=== PATIENT | male | born 1960 | race Caucasian/White ===

== ENCOUNTER 2017-07-26 19:41 | Emergency (ER) | payer SELFPAY ==
[2017-07-26 19:51] VITALS: TEMP 99.1
[2017-07-26] MEDS ORDERED: SODIUM CHLORIDE 0.9% FLUSH 10 ML SOL IV PRN (20:04)
[2017-07-26] MEDS ORDERED: ASPIRIN 81 MG CHEWABLE CTB PO STA (20:04)
[2017-07-26] MEDS ORDERED: NITROGLYCERIN 0.4 MG TAB SL PRN (20:04)
[2017-07-26 20:20] LABS: BASOPHILS % (AUTO) 1 % (0-3); EOSINOPHILS % (AUTO) 4 % (0-9); HEMATOCRIT 36 % (39-53); MEAN CORPUSCULAR HGB CONC 35.5 gm/dl (32.0-36.0); MEAN CORPUSCULAR VOLUME 92 fL (80-100); NEUTROPHILS % (AUTO) 57.9 % (37-80)
[2017-07-26 20:38] LABS: CALCIUM 8.9 mg/dl (8.5-10.1); POTASSIUM 3.8 mMol/L (3.5-5.1)
[2017-07-26] MEDS ORDERED: ASPIRIN 81 MG CHEWABLE CTB ONE (20:58)
[2017-07-26] MEDS ORDERED: MORPHINE SULFATE 10 MG/ML SOL IV ONE (21:37)
[2017-07-26] MEDS ORDERED: MORPHINE SULFATE 10 MG/ML SOL ONE (21:38)
[2017-07-26 21:45] VITALS: O2SAT 99
[2017-07-26 23:17] VITALS: BP 140/72; PULSE 80; RESP 19
== END 2017-07-26 23:05 | DRG 538 ==
LOC: ED 19:41
DX: S76.212A Strain of adductor muscle, fascia and tendon of left thigh, initial encounter (principal); Z86.79 Personal history of other diseases of the circulatory system
CPT/HCPCS: 36415; 71010; 74177; 80048; 82550; 83880; 84484; 85025; 85610; 85730; 93005; 99285; J2270; Q9967

== ENCOUNTER 2018-07-06 14:14 | Emergency (ER) | payer SELFPAY ==
[2018-07-06 14:15] VITALS: O2SAT 99
[2018-07-06] MEDS ORDERED: MORPHINE SULFATE 10 MG/ML SOL IV ONE (14:35)
[2018-07-06] MEDS ORDERED: SOLUMEDROL 125 MG/2 ML 125 MG/2 ML PDS IV ONE (14:35)
[2018-07-06 14:39] VITALS: BP 175/75; PULSE 82; RESP 20; TEMP 97.4
[2018-07-06] MEDS ORDERED: MORPHINE SULFATE 10 MG/ML SOL ONE (14:42)
[2018-07-06] MEDS ORDERED: SOLUMEDROL 125 MG/2 ML 125 MG/2 ML PDS ONE (14:42)
[2018-07-06] MEDS ORDERED: SODIUM CHLORIDE 0.9% FLUSH 10 ML SOL IV PRN (14:58)
[2018-07-06 15:07] LABS: ALBUMIN 3.7 gm/dl (3.4-5.0); BILIRUBIN,TOTAL 0.2 mg/dl (0.2-1.0); CALCIUM 9.2 mg/dl (8.5-10.1); CARBON DIOXIDE 26.2 mEq/L (21-32); CREATININE 0.98 mg/dl (0.80-1.30); POTASSIUM 4.2 mMol/L (3.5-5.1); TOTAL PROTEIN 7.6 gm/dl (6.4-8.2)
[2018-07-06 15:50] LABS: BASOPHILS % (AUTO) 2 % (0-3); EOSINOPHILS % (AUTO) 7 % (0-9); HEMATOCRIT 39 % (39-53); HEMOGLOBIN 13.4 gm/dl (13.5-17.7); LYMPHOCYTES % (AUTO) 33.1 % (10-50); MEAN CORPUSCULAR HEMOGLOBIN 32.2 pg (27.0-32.0); MEAN CORPUSCULAR HGB CONC 34.6 gm/dl (32.0-36.0); MEAN CORPUSCULAR VOLUME 93 fL (80-100); MONOCYTES % (AUTO) 7.1 % (0-12); NEUTROPHILS % (AUTO) 50.7 % (37-80)
== END 2018-07-06 16:25 | disposition home or self-care (01) | DRG 547 ==
LOC: ED 14:14
DX: M32.9 Systemic lupus erythematosus, unspecified (principal)
CPT/HCPCS: 36415; 80053; 85025; 85651; 96374; 96375; 99283; J2270; J2930

== ENCOUNTER 2018-07-27 18:36 | Emergency (ER) | payer SELFPAY ==
[2018-07-27 19:13] VITALS: BP 153/80; PULSE 98; RESP 18; TEMP 96.7; O2SAT 100
[2018-07-27] MEDS ORDERED: PREDNISONE 20 MG TAB ONE (19:42)
[2018-07-27] MEDS ORDERED: AZITHROMYCIN 250 MG TAB ONE (19:43)
[2018-07-27] MEDS ORDERED: AZITHROMYCIN 200 MG/5 ML BOTTLE ONE (19:53)
[2018-07-27] MEDS ORDERED: AZITHROMYCIN 250 MG TAB PO ONE (20:01)
[2018-07-27] MEDS ORDERED: AZITHROMYCIN 200 MG/5 ML BOTTLE PO ONE (20:01)
[2018-07-27] MEDS ORDERED: PREDNISONE 20 MG TAB PO ONE (20:02)
== END 2018-07-27 20:00 | disposition home or self-care (01) | DRG 156 ==
LOC: ED 18:36
DX: H60.502 Unspecified acute noninfective otitis externa, left ear (principal); I25.10 Atherosclerotic heart disease of native coronary artery without angina pectoris; I50.9 Heart failure, unspecified; R50.9 Fever, unspecified
CPT/HCPCS: 99282; A9270-GY